=== PATIENT | male | born 1980 | race Two or more races ===

== ENCOUNTER 2018-01-12 19:24 | Emergency (ER) | payer OTHER ==
[~2018-01-12] VITALS: Ht 175.3 cm; Wt 93.0 kg
[2018-01-12 19:30] VITALS: Ht 175.3 cm; Wt 93.0 kg
[2018-01-12 20:48] VITALS: BP 110/84
== END 2018-01-12 20:48 | disposition home or self-care (01) ==
LOC: ED 19:24
DX: R05 Cough (principal); R06.02 Shortness of breath; Z91.010 Allergy to peanuts
CPT/HCPCS: J7620